=== PATIENT | female | born 1955 | race Caucasian/White ===

== ENCOUNTER 2024-06-04 12:12 | Inpatient (IN) ==
[2024-06-04 13:31] LABS: ABS Eosinophils 0.1 10^3/uL (0.0-0.5); ABS Lymphocytes 1.6 10^3/uL (1.0-4.8); ABS Monocytes 0.4 10^3/uL (0.0-0.9); ABS Neutrophils 5.8 10^3/uL (1.5-7.6); Eosinophil % 1.4 %; Hematocrit 40.4 % (35-45); Hemoglobin 13.3 g/dL (11.5-14.3); Lymphocyte % 19.7 %; Mean Corpuscular Hemoglobin 30.4 pg (27-33); Mean Corpuscular Volume 92.3 fL (80-97); Mean Platelet Volume 7.1 fL (7.5-11.2); Platelet Count 305 10^3/uL (150-450); Red Blood Count 4.37 10^6/uL (3.63-4.92); Red Cell Distribution Width 13.2 % (12-17); White Blood Count 7.9 10^3/uL (3.8-11.8)
[2024-06-04] MEDS: cefTRIAXone 1 gm/50 mL D5W 1 GM/50 ML BAG IV ONE (13:41)
[2024-06-04 14:08] LABS: Albumin 3.8 g/dL (3.2-5.2); Albumin/Globulin Ratio 1.2 (1-3); C Reactive Protein 3.06 mg/L (<8.01); Calcium 9.8 mg/dL (8.6-10.3); Creatinine, Serum 0.63 mg/dL (0.51-0.95); Globulin 3.2 g/dL (2-4); Magnesium 1.9 mg/dL (1.9-2.7); Phosphorus 4.5 mg/dL (2.5-5.0); Total Bilirubin 0.5 mg/dL (0.2-1.0); eGFR CKD-EPI 97.2 (>60)
[2024-06-04 14:58] LABS: High Sensitivity Troponin 1 Hr < 3 pg/mL (<15)
[2024-06-04] MEDS: Iohexol 350 (CONTRAST) 500 ML MDV IV ONE (15:18)
[2024-06-04 15:24] LABS: Potassium 4.2 mmol/L (3.5-5.0)
[2024-06-04] MEDS: methylPREDNISolone SOD SUCC 125 mg 2 ML VIAL IV ONE (15:40)
[2024-06-04 15:41] LABS: Creatinine, Serum 0.62 mg/dL (0.51-0.95); Potassium 3.8 mmol/L (3.5-5.0); eGFR CKD-EPI 97.5 (>60)
[2024-06-04] MEDS: Enoxaparin 40 MG/0.4 ML SYR SUBCUT SCH (17:19)
[2024-06-04] MEDS ORDERED: Mupirocin 2% OINT TUBE TOPICAL PRN (17:26)
[2024-06-04] MEDS ORDERED: Lisinopril/HCTZ 20/12.5 TB(NF) PO SCH (18:00)
[2024-06-05 06:22] LABS: ABS Lymphocytes 0.9 10^3/uL (1.0-4.8); ABS Monocytes 0.3 10^3/uL (0.0-0.9); ABS Neutrophils 7.2 10^3/uL (1.5-7.6); Hematocrit 39.3 % (35-45); Hemoglobin 13.2 g/dL (11.5-14.3); Lymphocyte % 11.2 %; Mean Corpuscular Hemoglobin 30.9 pg (27-33); Mean Corpuscular Hgb Conc 33.6 g/dL (31-36); Mean Corpuscular Volume 91.9 fL (80-97); Mean Platelet Volume 7.6 fL (7.5-11.2); Platelet Count 314 10^3/uL (150-450); Red Blood Count 4.27 10^6/uL (3.63-4.92); Red Cell Distribution Width 13.1 % (12-17); White Blood Count 8.5 10^3/uL (3.8-11.8)
[2024-06-05 06:51] LABS: Calcium 9.3 mg/dL (8.6-10.3); Creatinine, Serum 0.64 mg/dL (0.51-0.95); Magnesium 1.9 mg/dL (1.9-2.7); Potassium 4.5 mmol/L (3.5-5.0); eGFR CKD-EPI 96.8 (>60)
[2024-06-05] MEDS: DULoxetine DR 60 mg CAP PO SCH (08:37)
[2024-06-05] MEDS: Calcium Carb (TUMS) 500 mg CHEW TAB PO SCH (08:38)
[2024-06-05] MEDS: Lidocaine PATCH 5% PATCH TRANSDERM SCH (08:40)
[2024-06-05] MEDS: SELENIUM 50 MCG PO SCH (08:42)
[2024-06-05] MEDS: Cholecalciferol (VIT D3) 400 units TAB PO SCH (08:46)
[2024-06-06 06:50] LABS: Calcium 9.2 mg/dL (8.6-10.3); Creatinine, Serum 0.54 mg/dL (0.51-0.95); Magnesium 1.9 mg/dL (1.9-2.7); eGFR CKD-EPI 100.8 (>60)
[2024-06-06 10:00] VITALS: BP 121/74
[2024-06-06 16:37] LABS: Immunoglobulin Subclass IgG4 103.2 mg/dL
== END 2024-06-06 15:23 | disposition home or self-care (01) | DRG 189 ==
LOC: ED 12:12 → EDHOLD 15:49 → MEDTELE 16:43
PROVIDERS: ADMIT Student in an Organized Health Care Education/Training Program; ATTEND Student in an Organized Health Care Education/Training Program

== ENCOUNTER 2024-09-06 15:57 | Inpatient (IN) ==
[2024-09-06] MEDS: Midazolam 10 mg/10 ml VIAL 1 mg/ml 10 ml VIAL (10 mg) IV SLOW PU ONE (15:57)
[2024-09-06 16:10] LABS: ABS Basophils 0.1 10^3/uL (0.0-0.1); ABS Eosinophils 0.3 10^3/uL (0.0-0.5); ABS Monocytes 1.1 10^3/uL (0.0-0.9); ABS Neutrophils 13.6 10^3/uL (1.5-7.6); ABS Nucleated RBC 0.01 10^3/ul; Eosinophil % 1.6 %; Hematocrit 37.8 % (35-45); Hemoglobin 12.5 g/dL (11.5-14.3); Lymphocyte % 11.6 %; Mean Corpuscular Hemoglobin 30.8 pg (27-33); Mean Corpuscular Volume 93.2 fL (80-97); Mean Platelet Volume 6.9 fL (7.5-11.2); Nucleated Red Blood Cells % 0.1 %/100WBC (0.0-0.8); Platelet Count 464 10^3/uL (150-450); Red Blood Count 4.06 10^6/uL (3.63-4.92)
[2024-09-06 16:29] LABS: INR 1.32 (0.85-1.14)
[2024-09-06 16:54] LABS: Albumin 3.8 g/dL (3.2-5.2); Albumin/Globulin Ratio 1.3 (1-3); Calcium 9.5 mg/dL (8.6-10.3); Creatinine, Serum 0.93 mg/dL (0.51-0.95); Globulin 2.9 g/dL (2-4); Potassium 4.5 mmol/L (3.5-5.0); Total Bilirubin 0.6 mg/dL (0.2-1.0); Total Protein 6.7 g/dL (6.4-8.9); eGFR CKD-EPI 66.9 (>60)
[2024-09-06] MEDS ORDERED: Sulfur Hexaflouride MICROSPHR 25 MG VIAL IV PRN (18:12)
[2024-09-07 00:03] LABS: Calcium 9.1 mg/dL (8.6-10.3)
[2024-09-07 00:53] LABS: Creatinine, Serum 0.76 mg/dL (0.51-0.95); eGFR CKD-EPI 85.3 (>60)
[2024-09-07] MEDS: Enoxaparin 30 MG/0.3 ML SYR SUBCUT SCH (01:09)
[2024-09-07 05:08] LABS: ABS Basophils 0.1 10^3/uL (0.0-0.1); ABS Eosinophils 0.2 10^3/uL (0.0-0.5); ABS Neutrophils 9.6 10^3/uL (1.5-7.6); Eosinophil % 1.6 %; Hematocrit 34.8 % (35-45); Hemoglobin 11.6 g/dL (11.5-14.3); Lymphocyte % 15.7 %; Mean Corpuscular Hemoglobin 30.8 pg (27-33); Mean Corpuscular Hgb Conc 33.5 g/dL (31-36); Mean Corpuscular Volume 92.1 fL (80-97); Platelet Count 379 10^3/uL (150-450); Red Blood Count 3.78 10^6/uL (3.63-4.92); Red Cell Distribution Width 12.7 % (12-17); White Blood Count 12.9 10^3/uL (3.8-11.8)
[2024-09-07 05:45] LABS: Calcium 8.9 mg/dL (8.6-10.3); Creatinine, Serum 0.65 mg/dL (0.51-0.95); Magnesium 1.8 mg/dL (1.9-2.7); Potassium 4.1 mmol/L (3.5-5.0); eGFR CKD-EPI 95.8 (>60)
[2024-09-07] MEDS: Magnesium Sulfate 2 gm BAG 2 GM/50 ML BAG IVPB ONE (08:12)
[2024-09-07] MEDS: DULoxetine DR 60 mg CAP PO SCH (08:12)
[2024-09-07] MEDS: MYCOPHENOLATE 180 MG PO SCH (08:12)
[2024-09-07] MEDS: Morphine 10 MG/ML VIAL (1 ml) IV PRN (13:41)
[2024-09-07] MEDS: Albumin Human 5% 12.5 GM/250 ML BTL IV ONE (14:20)
[2024-09-08 06:11] LABS: Hematocrit 34.5 % (35-45); Hemoglobin 11.4 g/dL (11.5-14.3); Mean Corpuscular Hemoglobin 30.8 pg (27-33); Mean Corpuscular Hgb Conc 33.1 g/dL (31-36); Mean Platelet Volume 7.3 fL (7.5-11.2); Platelet Count 406 10^3/uL (150-450); Red Blood Count 3.71 10^6/uL (3.63-4.92); Red Cell Distribution Width 12.9 % (12-17); White Blood Count 23.3 10^3/uL (3.8-11.8)
[2024-09-08 06:27] LABS: Calcium 9.2 mg/dL (8.6-10.3); Creatinine, Serum 1.47 mg/dL (0.51-0.95); Magnesium 2.3 mg/dL (1.9-2.7); Potassium 4.7 mmol/L (3.5-5.0); eGFR CKD-EPI 38.6 (>60)
[2024-09-08 06:30] LABS: ABS Basophils 0.1 10^3/uL (0.0-0.1); ABS Eosinophils 0.1 10^3/uL (0.0-0.5); ABS Lymphocytes 1.1 10^3/uL (1.0-4.8); ABS Monocytes 1.4 10^3/uL (0.0-0.9); ABS Neutrophils 20.5 10^3/uL (1.5-7.6); Eosinophil % 0.6 %; Lymphocyte % 4.7 %
[2024-09-08] MEDS: CMC:Mycophenolate 180 mg TAB (NF) PO ONE (10:18)
[2024-09-08] MEDS: Morphine 4 MG/ML VIAL (1 ml) IV ONE (21:03)
[2024-09-08] MEDS: Morphine 4 MG/ML VIAL (1 ml) ONE (21:07)
[2024-09-09] MEDS: HYDROmorphone 1 MG/1 ML SYRINGE IV ONE (05:25)
[2024-09-09 06:04] LABS: ABS Basophils 0.1 10^3/uL (0.0-0.1); ABS Lymphocytes 0.9 10^3/uL (1.0-4.8); ABS Neutrophils 19.3 10^3/uL (1.5-7.6); Eosinophil % 0.1 %; Hematocrit 33.2 % (35-45); Hemoglobin 10.8 g/dL (11.5-14.3); Lymphocyte % 4.3 %; Mean Corpuscular Hemoglobin 30.4 pg (27-33); Mean Corpuscular Hgb Conc 32.4 g/dL (31-36); Mean Corpuscular Volume 93.7 fL (80-97); Mean Platelet Volume 7.2 fL (7.5-11.2); Platelet Count 412 10^3/uL (150-450); Red Blood Count 3.54 10^6/uL (3.63-4.92); Red Cell Distribution Width 12.8 % (12-17); White Blood Count 21.4 10^3/uL (3.8-11.8)
[2024-09-09 06:42] LABS: Calcium 9.2 mg/dL (8.6-10.3); Creatinine, Serum 3.25 mg/dL (0.51-0.95); Magnesium 2.5 mg/dL (1.9-2.7); Potassium 5.8 mmol/L (3.5-5.0); eGFR CKD-EPI 14.9 (>60)
[2024-09-09] MEDS: CMC:Mycophenolate 180 mg TAB (NF) PO SCH (10:14)
[2024-09-09] MEDS: Lactated Ringers 1000 ml BAG 500 ML IV ONE (10:41)
[2024-09-09] MEDS ORDERED: LORazepam 2 mg VIAL 1 ml IV PUSH PRN (13:25)
[2024-09-09] MEDS ORDERED: Lorazepam PYXIS KEY PRN (13:30)
[2024-09-09] MEDS ORDERED: Ondansetron 4 mg VIAL 2 MG/ML 2 ml VIAL IV PRN (13:40)
[2024-09-09] MEDS ORDERED: Senna TAB 8.6 mg TAB PO PRN (13:40)
[2024-09-09] MEDS ORDERED: Scopolamine 1 mg/72hr PATCH TRANSDERM SCH (14:00)
[2024-09-09] MEDS: Morphine 10 MG/ML VIAL (1 ml) IV PRN (14:04)
[2024-09-09] MEDS: LORazepam 2 mg VIAL 1 ml IV PUSH PRN (14:04)
[2024-09-09 14:20] VITALS: BP 91/71
[2024-09-09] MEDS ORDERED: Heparin 5000 UNITS/ML 1 mL VIAL SUBCUT SCH (21:00)
== END 2024-09-09 15:13 | disposition expired | DRG 189 ==
LOC: ED 15:57 → EDHOLD 16:04 → ICU 16:20
PROVIDERS: ADMIT Internal Medicine Critical Care Medicine; ATTEND Internal Medicine Critical Care Medicine